=== PATIENT | male | born 1995 | race Caucasian/White ===

== ENCOUNTER 2024-08-24 18:39 | Emergency (ER) | payer SELFPAY ==
[2024-08-24 18:45] VITALS: BP 113/59; PULSE 76; RESP 20; TEMP 36.4; O2SAT 100
--- NOTE | 2024-08-24 19:27 | ED.WOUNDLAC ---
HPI - Wound/Laceration General Chief Complaint: Wound/Laceration Stated Complaint: deep stitches that needs to be removed Time Seen by Provider: 08/24/24 19:14 History of Present Illness HPI narrative: 29-year-old male presenting for stitch removal. He went to urgent care yesterday and had 4/5 stitches removed out of his right middle finger from a previous laceration of the in the last month. They were not able to get the last suture removed and referred him to the ER. Patient is not having any bleeding, no signs of infection was otherwise in his normal state of health. Review of Systems Review of Systems: As reviewed above in HPI Exam Narrative: GENERAL: [Well-appearing, well-nourished, and in no acute distress.] HEAD: [Normocephalic, atraumatic.] CHEST: No tachypnea EXTREMITIES: Right middle finger on the radial aspect near the space between D IP and PIP joint has an area of well-healed laceration with 1 remaining suture in the granulation tissue. No active bleeding. No signs of infection. No restricted range of motion. SKIN: Warm, dry, no rash. Course Vital Signs Vital signs: Vital Signs Temperature 36.4 C 08/24/24 18:45 Pulse Rate 76 08/24/24 18:45 Respiratory Rate 20 08/24/24 18:45 Blood Pressure 113/59 L 08/24/24 18:45 Pulse Oximetry 100 08/24/24 18:45 Oxygen Delivery Room Air 08/24/24 18:45 Temperature 36.4 C 08/24/24 18:45 Pulse Rate 76 08/24/24 18:45 Respiratory Rate 20 08/24/24 18:45 Blood Pressure 113/59 L 08/24/24 18:45 Pulse Oximetry 100 08/24/24 18:45 Oxygen Delivery Room Air 08/24/24 18:45 MDM - Wound/Laceration MDM Narrative Medical decision making narrative: 29-year-old male presenting for suture removal. He has 1 remaining stitches in his wound on his right middle finger that was not able to be removed at urgent care. Eleven blade scalp was used and carefully cut the thread of what appears to be Ethilon suture. Removed without any complication, no bleeding, bandage was applied, patient is safe for discharge. Medical Records Attestation: I reviewed the patient's medical records. Discharge Plan Discharge Clinical Impression: Encounter for removal of sutures Patient Disposition: Home, Self-Care Condition: Stable Instructions: Antibiotic Form Additional Instructions: We removed the last stitch you had in your wound, follow-up with your doctor as needed. Patient Language: Comoran Follow-up/Referrals: PHYSICIAN NOT ON STAFF,NONSTAFF [Primary Care Provider] - Time of Disposition: 19:30
--- OUTSIDE RECORDS SUMMARY | 2024-08-24 19:37 | XMS_ITS | Clinical Summary ---
Author Organization [facility] Address [address] [place] [address] Care Team Providers Care School Psychological Examiner Name Role Phone Unavailable Primary Care Provider Unavailabl e Source Comments [facility],non-owned Affiliates and Associated Physician Practices is amultiple site organization consisting of ambulatory clinics and hospital sitesin [place], [place], [place] and [place]. This disclosure is being madepursuant to the Care Everywhere program and may not contain all information available regarding this patient. Last updated 18.[facility] Allergies No known active allergies Medications Be aware that medications may not be up to date on this document. Always verify current medications with the patient. No known medications Encounters Date Type Department Care Team Description 08/08/2024 2:35 PM BUILDING CONSTRUCTION ENGINEER - 08/08/2024 3:12 PM BUILDING CONSTRUCTION ENGINEER Emergency [facility] - Emergency Department [address] [place] [address] Kemar Johnson APRN-ALIDA Laceration of blood vessel of right middle finger, initial encounter Discharge Disposition: Home or Self Care 08/08/2024 Travel from Last 3 Months Social History Tobacco Use Types Packs/Day Years Used Date Smoking Tobacco: Never Smokeless Tobacco: Never Tobacco Cessation:Counseling Given: Not Answered Alcohol Use Standard Drinks/Week Comments Not Currently 0 (1 standard drink = 0.6 oz pur e alcohol) Sex and Gender Information Value Date Recorded Sex Assigned at Female 08/08/2024 2:43 PM BUILDING CONSTRUCTION ENGINEER Gender Identity Male 08/08/2024 2:43 PM BUILDING CONSTRUCTION ENGINEER Sexual Orientation Not on file Last Filed Vital Signs Vital Sign Reading Time Taken Comments Blood Pressure 111/76 08/08/2024 2:38 PM BUILDING CONSTRUCTION ENGINEER Pulse 90 08/08/2024 2:38 PM BUILDING CONSTRUCTION ENGINEER Temperature 36.4 C (97.6 F) 08/08/2024 2:38 PM BUILDING CONSTRUCTION ENGINEER Respiratory Rate 16 08/08/2024 2:38 PM BUILDING CONSTRUCTION ENGINEER Oxygen Saturation 100% 08/08/2024 2:38 PM BUILDING CONSTRUCTION ENGINEER Inhaled Oxygen Concentration - - Weight 63.5 kg (140 lb) 08/08/2024 2:38 PM BUILDING CONSTRUCTION ENGINEER Height 175.3 cm (5' 9 ) 08/08/2024 2:38 PM BUILDING CONSTRUCTION ENGINEER Body Mass Index 20.67 08/08/2024 2:38 PM BUILDING CONSTRUCTION ENGINEER Plan of Treatment Health Maintenance Due Date Last Done Comments PAP SMEAR 1997 HIV SCREENING 2012 HEPATITIS C SCREENING 07/19/2015 DTAP/TDAP/TD VACCINES (1 - Tdap) 2016 HEPATITIS B VACCINE (1 of 3 - 19+ 3-dose series) 2016 COVID-19 VACCINE ( - 2023-2 5 season) 2024 INFLUENZA VACCINE (#1) 2024 DEPRESSION SCREENING 07/17/2024 ZOSTER VACCINE (1 of 2) 2047 HIB VACCINE Aged Out No longer eligi ble based on patient's age to complete this topic HPV VACCINE Aged Out No longer eligi ble based on patient's age to complete this topic MENINGOCOCCAL (Group B) VACCINE Aged Out No longer eligible based on patient's age to complete this topic MENINGOCOCCAL VACCINE Aged Out No michele leanne eligible based on patient's age to complete this topic PNEUMOCOCCAL VACCINE Aged Out No long er eligible based on patient's age to complete this topic Procedures Procedure Name Priority Date/Time Associated Diagnosis Comments ED LACERATION REPAIR Routine 08/08/2024 3:04 PM BUILDING CONSTRUCTION ENGINEER from Last 3 Months Results * Laceration Repair (08/08/2024 3:04 PM BUILDING CONSTRUCTION ENGINEER) Narrative Kemar Johnson APRN-CNP - 08/08/2024 3:04 PM BUILDING CONSTRUCTION ENGINEER Kemar Johnson APRN-CNP 08/08/2024 3:08 PM Laceration Repair Date/Time: 08/08/2024 3:04 PM Performed by: Kemar Johnson APRN-CNP Authorized by: Kemar Johnson APRN-CNP Consent: Consent obtained: Verbal Consent given by: Patient Risks discussed: Infection, pain, retained foreign body, need for additional repair, poor cosmetic result, tendon damage, vascular damage, poor wound healing and nerve damage Alternatives discussed: No treatment [place] protocol: Patient identity confirmed: Verbally with patient Anesthesia: Anesthesia method: Local infiltration Local anesthetic: Lidocaine 1% w/o epi Laceration details: Location: Finger Finger location: R long finger Length (cm): 2 Pre-procedure details: Preparation: Patient was prepped and draped in usual sterile fashion Exploration: Imaging outcome: foreign body not noted Treatment: Area cleansed with: Povidone-iodine Visualized foreign bodies/material removed: no Skin repair: Repair method: Sutures Suture size: 5-0 Suture material: Nylon Suture technique: Simple interrupted Number of sutures: 5 Approximation: Approximation: Close Repair type: Repair type: Simple Post-procedure details: Dressing: Bulky dressing Procedure completion: Tolerated Kemar TORRES PROCEDURE/MINOR SURGICAL ORDERABLES from Last 3 Months
--- OUTSIDE RECORDS SUMMARY | 2024-08-24 19:37 | XMS_ITS | Patient Health Summary ---
Author Organization [facility] Address [address] [place] [address] Care Team Providers Care Public Transportation Inspector Name Role Phone Unavailable Primary Care Provider Unavailabl e Note from [facility],non-owned Affiliates and Associated Physician Practices is amultiple site organization consisting of ambulatory clinics and hospital sitesin [place], [place], [place] and [place]. This disclosure is being madepursuant to the Care Everywhere program and may not contain all information available regarding this patient. Last updated 18.[facility] [employer] Allergies No known active allergies Medications Be aware that medications may not be up to date on this document. Always verify current medications with the patient. No known medications Social History Tobacco Use Types Packs/Day Years Used Date Smoking Tobacco: Never Smokeless Tobacco: Never Tobacco Cessation:Counseling Given: Not Answered Alcohol Use Standard Drinks/Week Comments Not Currently 0 (1 standard drink = 0.6 oz pur e alcohol) Sex and Gender Information Value Date Recorded Sex Assigned at Female 08/08/2024 2:43 PM LAB ASST Gender Identity Male 08/08/2024 2:43 PM LAB ASST Sexual Orientation Not on file Last Filed Vital Signs Vital Sign Reading Time Taken Comments Blood Pressure 111/76 08/08/2024 2:38 PM LAB ASST Pulse 90 08/08/2024 2:38 PM LAB ASST Temperature 36.4 C (97.6 F) 08/08/2024 2:38 PM LAB ASST Respiratory Rate 16 08/08/2024 2:38 PM LAB ASST Oxygen Saturation 100% 08/08/2024 2:38 PM LAB ASST Inhaled Oxygen Concentration - - Weight 63.5 kg (140 lb) 08/08/2024 2:38 PM LAB ASST Height 175.3 cm (5' 9 ) 08/08/2024 2:38 PM LAB ASST Body Mass Index 20.67 08/08/2024 2:38 PM LAB ASST Procedures * ED LACERATION REPAIR(Performed 08/08/2024) Results * Laceration Repair (08/08/2024 3:04 PM LAB ASST) Narrative Kemar Johnson APRN-CNP - 08/08/2024 3:04 PM LAB ASST Kemar Johnson APRN-CNP 08/08/2024 3:08 PM Laceration Repair Date/Time: 08/08/2024 3:04 PM Performed by: Kemar Johnson APRN-CNP Authorized by: Kemar Johnson APRN-CNP Consent: Consent obtained: Verbal Consent given by: Patient Risks discussed: Infection, pain, retained foreign body, need for additional repair, poor cosmetic result, tendon damage, vascular damage, poor wound healing and nerve damage Alternatives discussed: No treatment [place] protocol: Patient identity confirmed: Verbally with patient [...]
--- OUTSIDE RECORDS SUMMARY | 2024-08-24 19:37 | XMS_ITS | Referral Summary ---
Author Organization [facility] Address [address] [place] [id number] Care Team Providers Care Senior Staff Consultant Name Role Phone No, Physician Primary Care Provider [phone] Encounters Date Type Department Care Team Description 08/22/[address] [address] Zena Francois RN 08/21/2024 5:00 PM MIRROR POLISHER - 08/21/2024 5:40 PM [facility] Emergency [address] [address] Discharge Disposition: Left without being seen 08/10/2024 8:51 PM MIRROR POLISHER - 08/10/2024 9:48 PM [facility] Emergency [address] [id number] Visit for wound check (Primary Dx) Discharge Disposition: Discharge to home or self care from Last 3 Months Allergies No known active allergies Social History Tobacco Use Types Packs/Day Years Used Date Smoking Tobacco: Never Assessed Personal Safety Answer Date Recorded Have you ever been in or are you currently in a harmful physical or emotional relationship or is someone making you feel afraid or unsafe? Denies 08/10/2024 Sex and Gender Information Value Date Recorded Sex Assigned at Not on file Legal Sex Male 7:43 PM MIRROR POLISHER Gender Identity Not on file Sexual Orientation Not on file Last Filed Vital Signs Vital Sign Reading Time Taken Comments Blood Pressure 115/76 08/21/2024 5:03 PM MIRROR POLISHER Pulse 71 08/21/2024 5:03 PM MIRROR POLISHER Temperature 37.1 C (98.8 F) 08/21/2024 5:03 PM MIRROR POLISHER Respiratory Rate 18 08/21/2024 5:03 PM MIRROR POLISHER Oxygen Saturation 100% 08/21/2024 5:03 PM MIRROR POLISHER Inhaled Oxygen Concentration - - Weight - - Height 175.3 cm (5' 9 ) 08/10/2024 7:46 PM MIRROR POLISHER Body Mass Index - - Plan of Treatment Not on file Insurance [employer] [place] [id number] Care Teams Senior Staff Consultant Relationship Specialty Start Date End Date No, Physician PCP - General 08/10/24
--- OUTSIDE RECORDS SUMMARY | 2024-08-24 19:37 | XMS_ITS | Referral Summary ---
Author Organization [facility] Address [address] [place] [address] Care Team Providers Care Freedom Of Information Officer Name Role Phone Unavailable Primary Care Provider Unavailabl e Source Comments [facility],non-owned Affiliates and Associated Physician Practices is amultiple site organization consisting of ambulatory clinics and hospital sitesin [place], [place], [place] and [place]. This disclosure is being madepursuant to the Care Everywhere program and may not contain all information available regarding this patient. Last updated 18.[facility] Encounters Date Type Department Care Team Description 08/08/2024 Travel 08/08/2024 2:35 PM PHYSICAL THERAPIST TECHNICIAN - 08/08/2024 3:12 PM PHYSICAL THERAPIST TECHNICIAN Emergency [facility] - Emergency Department [address] [place] [address] Kemar Johnson APRN-ALIDA Laceration of blood vessel of right middle finger, initial encounter Discharge Disposition: Home or Self Care from Last 3 Months Allergies No known active allergies Medications Be [...] Sex Assigned at Female 08/08/2024 2:43 PM PHYSICAL THERAPIST TECHNICIAN Gender Identity Male 08/08/2024 2:43 PM PHYSICAL THERAPIST TECHNICIAN Sexual Orientation Not on file Last Filed Vital Signs Vital Sign Reading Time Taken Comments Blood Pressure 111/76 08/08/2024 2:38 PM PHYSICAL THERAPIST TECHNICIAN Pulse 90 08/08/2024 2:38 PM PHYSICAL THERAPIST TECHNICIAN Temperature 36.4 C (97.6 F) 08/08/2024 2:38 PM PHYSICAL THERAPIST TECHNICIAN Respiratory Rate 16 08/08/2024 2:38 PM PHYSICAL THERAPIST TECHNICIAN Oxygen Saturation 100% 08/08/2024 2:38 PM PHYSICAL THERAPIST TECHNICIAN Inhaled Oxygen Concentration - - Weight 63.5 kg (140 lb) 08/08/2024 2:38 PM PHYSICAL THERAPIST TECHNICIAN Height 175.3 cm (5' 9 ) 08/08/2024 2:38 PM PHYSICAL THERAPIST TECHNICIAN Body Mass Index 20.67 08/08/2024 2:38 PM PHYSICAL THERAPIST TECHNICIAN Plan of Treatment Not on file Procedures Procedure Name Priority Date/Time Associated Diagnosis Comments ED LACERATION REPAIR Routine 08/08/2024 3:04 PM PHYSICAL THERAPIST TECHNICIAN from Last 3 Months Results * Laceration Repair (08/08/2024 3:04 PM PHYSICAL THERAPIST TECHNICIAN) Narrative Kemar Johnson APRN-CNP - 08/08/2024 3:04 PM PHYSICAL THERAPIST TECHNICIAN Kemar Johnson APRN-CNP 08/08/2024 3:08 PM Laceration Repair Date/Time: 08/08/2024 3:04 PM Performed by: Kemar Johnson APRN-CNP Authorized by: Kemar Johnson APRN-CNP Consent: Consent obtained: Verbal Consent given by: Patient Risks discussed: Infection, pain, retained foreign body, need for additional repair, poor cosmetic result, tendon damage, vascular damage, poor wound healing and nerve damage Alternatives discussed: No treatment [facility] protocol: Patient identity confirmed: Verbally with patient [...] PROCEDURE/MINOR SURGICAL ORDERABLES from Last 3 Months Guarantor Name Account Type Relation to Patient Date of Phone Billing Address Ken Oseguera Personal/Family Self 1995 [address] [address]
--- OUTSIDE RECORDS SUMMARY | 2024-08-24 19:37 | XMS_ITS | Clinical Summary ---
Author Organization [facility] Address [address] [place] [phone] Care Team Providers Care Fishing Vessel Mate Name Role Phone No, Physician Primary Care Provider [phone] Allergies No known active allergies Encounters Date Type Department Care Team Description 08/22/[address] [address] Zena Fracnois RN 08/21/2024 5:00 PM SOFTWARE SYSTEMS ARCHITECT - 08/21/2024 5:40 PM [facility] Emergency [address] [address] Discharge Disposition: Left without being seen 08/10/2024 8:51 PM SOFTWARE SYSTEMS ARCHITECT - 08/10/2024 9:48 PM [facility] Emergency [address] [address] Visit for wound check (Primary Dx) Discharge Disposition: Discharge to home or self care from Last 3 Months Social History Tobacco [...] on file Legal Sex Male 7:43 PM SOFTWARE SYSTEMS ARCHITECT Gender Identity Not on file Sexual Orientation Not on file Last Filed Vital Signs Vital Sign Reading Time Taken Comments Blood Pressure 115/76 08/21/2024 5:03 PM SOFTWARE SYSTEMS ARCHITECT Pulse 71 08/21/2024 5:03 PM SOFTWARE SYSTEMS ARCHITECT Temperature 37.1 C (98.8 F) 08/21/2024 5:03 PM SOFTWARE SYSTEMS ARCHITECT Respiratory Rate 18 08/21/2024 5:03 PM SOFTWARE SYSTEMS ARCHITECT Oxygen Saturation 100% 08/21/2024 5:03 PM SOFTWARE SYSTEMS ARCHITECT Inhaled Oxygen Concentration - - Weight - - Height 175.3 cm (5' 9 ) 08/10/2024 7:46 PM SOFTWARE SYSTEMS ARCHITECT Body Mass Index - - Plan of Treatment Health Maintenance Due Date Last Done Comments Depression Screening 1997 Hepatitis C Screening 1997 DTaP/Tdap/Td Vaccine (1 - Tdap) 2008 Varicella Vaccines (1 of 2 - 13+ 2-dose series) 2010 Hepatitis B Screening 2015 Regular Well Visit/Exam 18-64 2015 Influenza Vaccine (#1) 2024 HPV Vaccines Aged Out No longer eligi ble based on patient's age to complete this topic Pneumococcal vaccine <65 Aged Out No longer eligible based on patient's age to complete this topic Insurance [facility] Address: [facility] [address] [place] [address] Care Teams Fishing Vessel Mate Relationship Specialty Start Date End Date No, Physician PCP - General 08/10/24
[2024-08-24 19:46] VITALS: PULSE 77; RESP 14; O2SAT 100
== END 2024-08-24 19:47 | disposition home or self-care (01) ==
LOC: ANHED 19:35
PROVIDERS: Emergency Provider Student in an Organized Health Care Education/Training Program
DX: S61.212D Laceration without foreign body of right middle finger without damage to nail, subsequent encounter (principal); X58.XXXD Exposure to other specified factors, subsequent encounter
CPT/HCPCS: 15853; 99282